=== PATIENT | female | born 1940 | race Caucasian/White ===

== ENCOUNTER → 2020-02-14 13:16 | Outpatient (CLI) | payer OTHER, SELFPAY ==
--- NOTE | ~2020-02-14 | MM_ITS ---
EXAMINATION: MM screening ajith BI w fabiana HISTORY: Screening mammogram TECHNIQUE: Craniocaudal and mediolateral oblique 3-D tomosynthesis images were obtained and synthetic 2-D images were generated. CAD analysis was submitted and interpreted. COMPARISON: , 06/18/2016, 05/23/2015 bilateral digital screening mammogram examinations BREAST PARENCHYMAL COMPOSITION: There are scattered areas of fibroglandular density. FINDINGS: 4.5 mm circumscribed opacity at mid depth in the inner mid to lower right breast. There ar e occasional punctate microcalcifications. There is no evidence of suspicious mass, calcification, or architectural distortion to suggest malignancy in either breast. There has been no suspicious interv al change. IMPRESSION: 1. No mammographic evidence of malignancy. 2. Recommend routine screening mammography in one year. BI-RADS Category 2: Benign finding(s). Reviewed, dictated and finalized at location A.
--- NOTE | ~2020-02-14 | DEXA_ITS ---
Bone Density Report Name: Kanika Méndez Age: 79 Sex: Female Ethnicity: White Date of : 1940 Indication: postmenopausal; screening for osteoporosis; height loss; Referring Provider: Kiya, Shona Greene Study: Bone densitometry was performed. Exam Date: February 14, 2020 Accession number: [id number] Bone Density: Region BMD T-score Z-score Classification AP Spine (L1-L4) 1.065 0.2 2.8 Normal Femoral Neck (Left) 0.648 -1.8 0.5 Osteopenia Total Hip (Left) 0.916 -0.2 1.8 Normal Femoral Neck (Right) 0.653 -1.8 0.5 Osteopenia Total Hip (Right) 0.918 -0.2 1.9 Normal Total Hip Mean 0.917 -0.2 1.9 Normal World Health Organization criteria for BMD impression classify patients as: Normal (T-score at or above -1.0), Osteopenia (T-score between -1.0 and -2.5), or Osteoporosis (T-score at or below -2.5). 10-year Fracture Risk(1): Major Osteoporotic Fracture 14% Hip Fracture 3.7% Reported Risk Factors: [place] (), Neck BMD=0.653, BMI=23.8 (1) FRAX(R) Version 3.08. Fracture probability calculated for an untreated patient. Fracture probability may be lower if the patient has received treatment. Previous Exams: Region Exam Age BMD T-score BMD Change BMD Change Date g/cm2 vs Baseline vs Previous AP Spine(L1-L4) 02/14/2020 79 1.065 0.2 0.024* 0.024* 11/15/2005 65 1.041 -0.1 Total Hip(Left) 02/14/2020 79 0.916 -0.2 -0.120* -0.062* 08/06/2016 76 0.979 0.3 -0.057* -0.057* 11/15/2005 65 1.036 0.8 Total Hip(Right) 02/14/2020 79 0.918 -0.2 -0.160* -0.073* 08/06/2016 76 0.991 0.4 -0.087* -0.087* 11/15/2005 65 1.078 1.1 *Denotes significance at 95% confidence level, LSC for AP Spine = 0.022 g/cm2, LSC for Total Hip = 0.027 g/cm2 Clinical Information Provided by Patient: Has used the following medications: Vitamin D, Calcium Patient maximum height was 63 Menopause Age: 50 Drinks caffeinated beverages Onset of menses at age 14 Number of children 2 Impression: The patient has low bone mass, based on the Left Femoral Neck T-score. The patient has an estimated ten-year risk of hip fracture of 3.7% and an estimated ten-year risk of major fracture of 14%, based on the WHO FRAX algorithm. The BMD for the Total Hip(Left) decreased, changing by -0.062 since the last DXA exam. The BMD for the Total Hip(Right) decreased, [facility]
== END ==
PROVIDERS: PCP Emergency Medicine; Visit Provider Nurse Practitioner Obstetrics & Gynecology
DX: Z12.31 Encounter for screening mammogram for malignant neoplasm of breast (principal); Z78.0 Asymptomatic menopausal state; M85.852 Other specified disorders of bone density and structure, left thigh; M85.851 Other specified disorders of bone density and structure, right thigh
CPT/HCPCS: 77063; 77067; 77080

== ENCOUNTER 2020-07-07 13:23 | Emergency (ER) | payer OTHER, SELFPAY ==
[2020-07-07 14:03] VITALS: BP 148/77; PULSE 88; RESP 18; TEMP 36.7; O2SAT 99
--- NOTE | 2020-07-07 14:16 | ED.URI ---
HPI - URI/Sore Throat General Chief Complaint: Upper Respiratory Infection Stated Complaint: Ear wax buildup Time Seen by Provider: 07/07/20 14:06 Source: patient and RN notes reviewed Mode of arrival: ambulatory Limitations: no limitations History of Present Illness HPI Narrative: Patient presents today complaining of a 3-week history of nasal congestion, a 2-week history of productive cough with green sputum and a 2-week history of left ear clogging without pain. Denies shortness of breath, fever, sore throat, rhinorrhea. No history of COPD or asthma. Reports she has been using earwax softening drops without result. She has also been taking Claritin with some relief. MD elicited complaint: cough and nasal congestion Related Data Home Medications Medication Instructions Recorded Confirmed trazodone 100 mg tablet 100 mg PO DAILY tablet 05/12/19 baclofen 10 mg tablet 10 mg PO TID tablet 03/01/20 diclofenac sodium 1 % topical gel 2 gm TOPICAL TID gm 03/01/20 docusate sodium 50 mg capsule See Rx Instructions PO DAILY 03/01/20 ferrous sulfate 325 mg (65 mg 325 mg PO BID 03/01/20 iron) tablet gabapentin 600 mg tablet 600 mg PO TID 03/01/20 multivitamin,ty-fhun-nzvqmdcn 1 tablet PO DAILY 03/01/20 Allergies Allergy/AdvReac Type Severity Reaction Status Date / Time clavulanic acid Allergy Intermediate Rash Unverified 12/15/18 19:18 amoxicillin Allergy Unknown Verified 10/02/17 15:28 Sulfa (Sulfonamide Allergy Unknown Verified 04/28/15 13:34 Antibiotics) Review of Systems Review of Systems: Narrative: CONSTITUTIONAL: Denies body aches, fever, chills, or sweats. EYES: Denies visual changes, redness, or discharge. ENT: Denies rhinorrhea, sore throat, or otalgia. + Nasal congestion, ear clogging CARDIOVASCULAR: Denies chest pain, palpitations, or edema. RESPIRATORY: Denies dyspnea. + Cough GASTROINTESTINAL: Denies abdominal pain, nausea, vomiting, or diarrhea. GENITOURINARY: Denies dysuria or hematuria. SKIN: Denies rash, itching, or wounds. MUSCULOSKELETAL: Denies back pain, joint pain, or myalgia. NEUROLOGIC: Denies headache, numbness, tingling, or weakness. PSYCH: Denies depression or anxiety. [facility] Past Medical History Medical History (Updated 07/07/20 @ 14:19 by Penny Perez, [facility], ) Depression Family History Family History Father Family history of cardiovascular disease, Onset Age: 82 Cerebrovascular accident, Onset Age: 82 Mother Family history of congestive heart failure, Onset Age: 78 Other Diabetes mellitus Family history of coronary artery disease Social History Social History Smoking status: Never smoker Alcohol intake: never Comments At time of signature, I have reviewed and agree with nursing past medical, surgical, social and family history unless otherwise noted. Please see nursing chart for further information. There is no relevant family history pertinent to the presenting complaint Exam Narrative: Exam Narrative: GENERAL: Well-appearing, well-nourished, and in no acute distress. HEAD: Normocephalic, atraumatic. EYES: EOMI. No redness or drainage. Conjunctivae normal. ENT: Mucous membranes pink and moist. Nares congested. Bilateral erythematous nasal turbinates. No rhinorrhea. TMs normal bilaterally with bilateral serous effusions. Throat normal. Uvula midline. NECK: Normal AROM. Supple. No lymphadenopathy. CHEST: No respiratory distress. Clear to auscultation. HEART: Regular rate and rhythm. No murmur appreciated. Normal peripheral pulses. EXTREMITIES: Normal range of motion. No edema. SKIN: Warm, dry, no rash. Capillary refill normal. Normal skin turgor. NEURO: No focal deficits. Alert and oriented x3. Gait steady. PSYCH: Normal affect. No signs of depression or anxiety. Course Vital Signs Vital sig
== END 2020-07-07 14:27 | disposition home or self-care (01) ==
PROVIDERS: Emergency Provider Nurse Practitioner; PCP Emergency Medicine
DX: J01.90 Acute sinusitis, unspecified (principal); F32.9 Major depressive disorder, single episode, unspecified
CPT/HCPCS: 99213; G0463

== ENCOUNTER → 2021-03-07 13:42 | Outpatient (CLI) | payer OTHER, SELFPAY ==
--- NOTE | ~2021-03-07 | MM_ITS ---
EXAMINATION: MM screening ajith BI w fabiana HISTORY: Screening mammogram TECHNIQUE: Craniocaudal and mediolateral oblique 3-D tomosynthesis images were obtained and synthetic 2-D images were generated. CAD analysis was submitted and interpreted. COMPARISON: 02/14/2020, 10/07/2018, 06/22/2016 bilateral digital screening mammogram examinations BREAST PARENCHYMAL COMPOSITION: There are scattered areas of fibroglandular density. FINDINGS: Stable circumscribed 4.5 mm opacity of right breast since 02/14/2020. There is no evidence o f suspicious mass, calcification, or architectural distortion to suggest malignancy in either breast. There has been no suspicious interval change. IMPRESSION: 1. No mammographic evidence of malignancy. 2. Recommend routine screening mammography in one year. BI-RADS Category 2: Benign finding(s). Reviewed, dictated and finalized at location A.
== END ==
PROVIDERS: PCP Emergency Medicine; Visit Provider Emergency Medicine
DX: Z12.31 Encounter for screening mammogram for malignant neoplasm of breast (principal)
CPT/HCPCS: 77063; 77067

== ENCOUNTER → 2022-05-20 13:50 | Outpatient (CLI) | payer OTHER, SELFPAY ==
--- NOTE | ~2022-05-20 | MM_ITS ---
EXAMINATION: MM screening ajith BI w fabiana HISTORY: Screening mammogram TECHNIQUE: Craniocaudal and mediolateral oblique 3-D tomosynthesis images were obtained and synthetic 2-D images were generated. CAD analysis was submitted and interpreted. COMPARISON: 03/07/2021, 02/14/2020, 10/07/2018, 04/27/2013 bilateral screening mammogram examinations BREAST PARENCHYMAL COMPOSITION: There are scattered areas of fibroglandular density. FINDINGS: Stable circumscribed 4 mm low-density opacity at mid depth in the inner mid to lower right breast since 04/27/2013 There is no evidence of suspicious mass, calcification, or architectural dist ortion to suggest malignancy in either breast. There has been no suspicious interval change. IMPRESSION: 1. No mammographic evidence of malignancy. 2. Recommend routine screening mammography in one year. BI-RADS Category 2: Benign finding(s). Reviewed, dictated and finalized at location A. [employer]
== END ==
PROVIDERS: PCP Emergency Medicine; Visit Provider Emergency Medicine
DX: Z12.31 Encounter for screening mammogram for malignant neoplasm of breast (principal)
CPT/HCPCS: 77063; 77067

== ENCOUNTER 2023-04-06 13:36 | Emergency (ER) | payer OTHER, SELFPAY ==
--- NOTE | ~2023-04-06 | XR_ITS ---
EXAM: XR hip LT min 2V DATE: 04/06/2023 14:29 HISTORY: fell on cement steps this AM/lateral hip pain . COMPARISON: None available. FINDINGS: Decreased mineralization. No fracture or dislocation. No lytic or blastic lesion. Degenera tive changes in the lumbar spine. Moderate degenerative change in the left SI joint. Mild left hip os teoarthritis and osteitis pubis. Pelvic enthesopathy. No erosion or periosteal change. Left inguinal surgical clips. Scattered vascular calcifications. IMPRESSION: No acute osseous finding in the left hip. Reviewed, dictated and finalized at location K.
[2023-04-06 13:48] VITALS: BP 115/64; PULSE 93; RESP 18; TEMP 36.6; O2SAT 97
--- NOTE | 2023-04-06 14:11 | ED.LOWEXIN ---
HPI - Extremity Injury (Lower) General Chief Complaint: Extremity Injury, Lower Stated Complaint: Lt Hip Paid Due To Fall Source: patient Mode of arrival: ambulatory Limitations: no limitations History of Present Illness HPI Narrative: 83-year-old female presented for evaluation after she fell on the steps at [employer] this morning while using the walker. States the walker slipped and she landed on the left hip. Other people were able to help her up. Currently denies any pain. Able to bear weight using walker per usual. Tolerates sitting position without pain. Denies numbness, tingling or weakness of the leg, denies back pain out of the ordinary (has spinal stim for arthritis) denies hitting her head or LOC. has not required anything for pain. Related Data Home Medications Medication Instructions Recorded Confirmed baclofen 10 mg tablet 10 mg PO TID 03/01/20 04/06/23 docusate sodium 50 mg capsule See Rx Instructions PO DAILY 03/01/20 04/06/23 (Stool Softener) ferrous sulfate 325 mg (65 mg 325 mg PO BID 03/01/20 04/06/23 iron) tablet (FeroSul) gabapentin 600 mg tablet 600 mg PO TID pain 03/01/20 04/06/23 multivitamin,bs-numx-rpwdzsxi 1 tablet PO DAILY 03/01/20 04/06/23 (Complete Multivitamin tablet) acetaminophen 300 mg-codeine 30 mg 1 tablet PO Q8H PRN Pain (Scale 12/03/22 04/06/23 tablet Score 7-10) calcium carb-ergocalciferol (vit 1 tablet PO DAILY 12/03/22 04/06/23 D2) 500 mg-125 unit tablet clobetasol 0.05 % topical ointment 1 applic topical DAILY 12/03/22 04/06/23 omega 5-uvu-edd-fish oil 1,000 mg 1 cap PO DAILY 12/03/22 04/06/23 (120 mg-180 mg) capsule (Fish Oil) prochlorperazine maleate 10 mg 10 mg PO Q6H PRN Nausea 12/03/22 04/06/23 tablet tizanidine 4 mg tablet 4 mg PO QHS PRN Spasms 12/03/22 04/06/23 Allergies Allergy/AdvReac Type Severity Reaction Status Date / Time amoxicillin AdvReac Mild Rash Verified 04/06/23 13:53 Cephalosporins AdvReac Mild Rash Verified 04/06/23 13:53 clavulanic acid AdvReac Mild Rash Verified 04/06/23 13:53 Sulfa (Sulfonamide AdvReac Mild Rash Verified 04/06/23 13:53 Antibiotics) Review of Systems Review of Systems: CONSTITUTIONAL: Denies body aches, fever, chills EYES: Denies visual changes ENT: Denies rhinorrhea, congestion CARDIOVASCULAR: Denies chest pain, palpitations, or edema. RESPIRATORY: Denies cough or dyspnea. GASTROINTESTINAL: Denies abdominal pain, nausea, vomiting, or diarrhea. SKIN: Denies rash, itching, or wounds. MUSCULOSKELETAL: Denies back pain, joint pain, or myalgia. NEUROLOGIC: Denies headache, numbness, tingling, or weakness. All systems reviewed & are unremarkable except as noted in HPI and below PMFSH Past Medical History Medical History Acute right-sided low back pain [place]head Body mass index [BMI] 23.0-23.9, adult (09/15/15) Chronic left-sided thoracic back pain Depression Gastroesophageal reflux disease without esophagitis Hiatal hernia Hyperglycemia Impacted cerumen of both ears Low grade mucinous neoplasm of appendix Mixed hyperlipidemia Osteopenia of necks of both femurs Other chronic pain Other iron deficiency anemias Other specified disorders of bone density and structure, left ankle and foot Respiratory tract congestion with cough Spinal cord stimulator status Upper back pain on left side URI, acute Vitamin D deficiency Wheezing Surgical History Surgical History Hx of appendectomy Family History Family History Father Family history of cardiovascular disease, Onset Age: 82 Cerebrovascular accident, Onset Age: 82 Mother Family history of congestive heart failure, Onset Age: 78 Other Diabetes mellitus Family history of coronary artery disease Social History Social History (Reviewed 04/06/23 @ 14:33 by Tiana Pal
== END 2023-04-06 14:50 | disposition home or self-care (01) ==
PROVIDERS: Emergency Provider Nurse Practitioner Family; PCP Emergency Medicine
DX: M25.552 Pain in left hip (principal); E78.2 Mixed hyperlipidemia; Z79.899 Other long term (current) drug therapy; W10.9XXA Fall (on) (from) unspecified stairs and steps, initial encounter; Y92.22 Religious institution as the place of occurrence of the external cause
CPT/HCPCS: 73502; 99213; G0463

== ENCOUNTER 2023-04-11 12:23 | Emergency (ER) | payer OTHER, SELFPAY ==
--- NOTE | ~2023-04-11 | XR_ITS ---
EXAMINATION: XR chest 2V DATE: 04/11/2023 12:57 INDICATION: Dyspnea. TECHNIQUE: Frontal and lateral views of the chest were obtained. COMPARISON: Chest 2 views 09/15/2015, CT abdomen and pelvis 09/10/2017 FINDINGS: Calcified pulmonary nodules and calcified hilar and mediastinal lymph nodes are consistent with old granulomatous disease. There is mild atelectasis at left lung base. No pleural effusion or p neumothorax. The heart size is normal. There is a large hiatal hernia. There is a right subclavian po rt with tip in proximal right atrium. Epidural electrodes are noted. IMPRESSION: 1. Mild atelectasis at left lung base. 2. Large hiatal hernia. Reviewed, dictated and finalized at location A.
[2023-04-11 12:36] VITALS: BP 123/67; PULSE 112; RESP 18; TEMP 36.6; O2SAT 94
--- NOTE | 2023-04-11 12:36 | ED.SOB ---
HPI - SOB/Dyspnea General Chief Complaint: Shortness of Breath/Dyspnea Stated Complaint: Trouble Breathing, Grasping for Breath Source: patient, family and RN notes reviewed History of Present Illness HPI Narrative: 83 yo F presents to urgent care with son at side. Pt states she has been short of breath x 1 month. Pt states it is constant with position and activity not contributing to it. Son states pt's lower legs have had swelling the last few months which is new. Denies any cough, fevers, chills, increased back pain, chest pain, vomiting, or diarrhea. Pt has a hx of melanoma. Is scheduled to see a neurologist next month regarding the new tremors she developed this past summer. Pt also fell recently and was seen here 5 days ago after injuring her hip. Pt denies this SOB has gotten worse from the fall. Related Data Home Medications Medication Instructions Recorded Confirmed baclofen 10 mg tablet 10 mg PO TID 03/01/20 04/11/23 docusate sodium 50 mg capsule See Rx Instructions PO DAILY 03/01/20 04/11/23 (Stool Softener) ferrous sulfate 325 mg (65 mg 325 mg PO BID 03/01/20 04/11/23 iron) tablet (FeroSul) gabapentin 600 mg tablet 600 mg PO TID pain 03/01/20 04/11/23 multivitamin,ci-orbe-zkvckwwr 1 tablet PO DAILY 03/01/20 04/11/23 (Complete Multivitamin tablet) acetaminophen 300 mg-codeine 30 mg 1 tablet PO Q8H PRN Pain (Scale 12/03/22 04/11/23 tablet Score 7-10) calcium carb-ergocalciferol (vit 1 tablet PO DAILY 12/03/22 04/11/23 D2) 500 mg-125 unit tablet clobetasol 0.05 % topical ointment 1 applic topical DAILY 12/03/22 04/11/23 omega 9-jcr-laf-fish oil 1,000 mg 1 cap PO DAILY 12/03/22 04/11/23 (120 mg-180 mg) capsule (Fish Oil) prochlorperazine maleate 10 mg 10 mg PO Q6H PRN Nausea 12/03/22 04/11/23 tablet tizanidine 4 mg tablet 4 mg PO QHS PRN Spasms 12/03/22 04/11/23 Allergies Allergy/AdvReac Type Severity Reaction Status Date / Time amoxicillin AdvReac Mild Rash Verified 04/11/23 12:43 Cephalosporins AdvReac Mild Rash Verified 04/11/23 12:43 clavulanic acid AdvReac Mild Rash Verified 04/11/23 12:43 Sulfa (Sulfonamide AdvReac Mild Rash Verified 04/11/23 12:43 Antibiotics) Review of Systems Review of Systems: CONSTITUTIONAL: Denies fever, chills, or sweats. EYES: Denies visual changes, redness, or discharge. ENT: Denies otalgia and sore throat CARDIOVASCULAR: Denies chest pain, palpitations. + edema RESPIRATORY: dyspnea. GASTROINTESTINAL: Denies abdominal pain, nausea, vomiting, or diarrhea. GENITOURINARY: Denies dysuria or hematuria. SKIN: Denies rash or itching. MUSCULOSKELETAL: Denies back pain, joint pain, or myalgia. NEUROLOGIC: Denies headache, numbness, or weakness. Pertinent positives per HPI. [facility] Past Medical History Medical History Acute right-sided low back pain [place]head Body mass index [BMI] 23.0-23.9, adult (09/15/15) Chronic left-sided thoracic back pain Depression Gastroesophageal reflux disease without esophagitis Hiatal hernia Hyperglycemia Impacted cerumen of both ears Low grade mucinous neoplasm of appendix Mixed hyperlipidemia Osteopenia of necks of both femurs Other chronic pain Other iron deficiency anemias Other specified disorders of bone density and structure, left ankle and foot Respiratory tract congestion with cough Spinal cord stimulator status Upper back pain on left side URI, acute Vitamin D deficiency Wheezing Surgical History Surgical History Hx of appendectomy Family History Family History Father Family history of cardiovascular disease, Onset Age: 82 Cerebrovascular accident, Onset Age: 82 Mother Family history of congestive heart failure, Onset Age: 78 Other Diabetes mellitus Family history of coronary artery disease Social Histo
--- NOTE | 2023-04-11 13:13 | ECG_ITS ---
Measurements Intervals [place] Rate: 100 P: 20 MS: 128 QRS: -27 QRSD: 65 T: 6 QT: 302 QTc: 390 Interpretive Statements SINUS TACHYCARDIA LOW QRS VOLTAGE IN PRECORDIAL LEADS [QRS DEFLECTION < 1.0 mV IN CHEST LEADS] POSSIBLE ANTERIOR MYOCARDIAL INFARCTION [30 ms Q WAVE IN V3/V4, OR R < 0.2 mV IN V4], PROBABLY OLD ARTIFACT LIMITS INTERPRETATION ABNORMAL ECG NO PREVIOUS ECG AVAILABLE FOR COMPARISON Electronically Signed On 04-11-2023 14:09:12 CDT by Parker Crowe M.D.
== END 2023-04-11 13:28 | disposition home or self-care (01) ==
PROVIDERS: Emergency Provider Nurse Practitioner Family; PCP Emergency Medicine
DX: R06.00 Dyspnea, unspecified (principal); R94.31 Abnormal electrocardiogram [ECG] [EKG]; K21.9 Gastro-esophageal reflux disease without esophagitis; E78.2 Mixed hyperlipidemia; M85.862 Other specified disorders of bone density and structure, left lower leg; M85.861 Other specified disorders of bone density and structure, right lower leg; D50.9 Iron deficiency anemia, unspecified; E55.9 Vitamin D deficiency, unspecified; Z96.82 Presence of neurostimulator
CPT/HCPCS: 71046; 93005; 99213; G0463

== ENCOUNTER 2023-04-13 07:03 | Inpatient (IN) | payer OTHER, SELFPAY ==
[2023-04-13] VITALS (15 sets, daily range): BP systolic 107–125; BP diastolic 56–69; PULSE 91–122; RESP 14–21; TEMP 36.6–37.6; O2SAT 92–100; BMI 22.8
--- NOTE | ~2023-04-13 | CT_ITS ---
EXAMINATION: CT brain wo con DATE: 04/15/2023 14:17 INDICATION: Acute mental status change. TECHNIQUE: Computed tomography (CT) of the head was performed without intravenous contrast. The mA wa s adjusted according to patient size. Iterative reconstruction technique was employed. The dose-lengt h product was 605.33 mGy-cm. COMPARISON: Head CT 04/13/2023 FINDINGS: There is no intracranial hemorrhage, acute infarction, or abnormal intracranial mass lesion . The ventricles are normal in size. There is mild mucosal thickening in the paranasal sinuses. The m astoid air cells are normal. There are likely changes of ocular lens replacement surgeries. IMPRESSION: 1. Normal brain. Reviewed, dictated and finalized at location E. IMPRESSION: 1. Normal brain.
--- NOTE | ~2023-04-13 | US_ITS ---
EXAMINATION: US venous doppler [facility] DATE: 04/13/2023 18:58 INDICATION: Bilateral lower limb swelling TECHNIQUE: Grayscale ultrasound images without and with compression and Doppler ultrasound images of the bilateral lower extremity veins were obtained. COMPARISON: None. FINDINGS: The visualized portions of right common femoral vein, profunda (deep) femoral vein, femoral vein, pop liteal vein, posterior tibial veins, peroneal veins, anterior tibial vein and greater saphenous vein outflow are patent. The visualized portions of left common femoral vein, profunda femoral vein, femoral vein, popliteal v ein, posterior tibial veins, peroneal veins, anterior tibial vein and greater saphenous vein outflow are patent. 6.3 x 2.3 x 4.8 cm lesion with lobular margins and with both anechoic and hypoechoic comp onents at the left groin. There is no surrounding hyperemia or internal vascular flow on color Dopple r. IMPRESSION: 1. No deep venous thrombosis in either lower limb. 2. 6.3 x 2.3 x 4.8 cm complex cystic lesion at the left groin. Given the history of recent fall with left hip pain this could represent a posttraumatic hematoma over the imaging features are nonspecific and differential would include neoplasm. Correlate clinically and could consider further evaluation with contrast-enhanced MRI or CT as clinically indicated. Reviewed, dictated and finalized at location A. IMPRESSION: 1. No deep venous thrombosis in either lower limb. 2. 6.3 x 2.3 x 4.8 cm complex cystic lesion at the left groin. Given the histor y of recent fall with left hip pain this could represent a posttraumatic hemato ma over the imaging features are nonspecific and differential would include santos plasm. Correlate clinically and could consider further evaluation with contrast -enhanced MRI or CT as clinically indicated.
--- NOTE | ~2023-04-13 | CT_ITS ---
EXAMINATION: CT brain wo con DATE: 04/13/2023 09:19 INDICATION: Weakness. TECHNIQUE: Computed tomography (CT) of the head was performed without intravenous contrast. The mA wa s adjusted according to patient size. Iterative reconstruction technique was employed. The dose-lengt h product was 529.67 mGy-cm. COMPARISON: None FINDINGS: There is no intracranial hemorrhage, acute infarction, or abnormal intracranial mass lesion . The ventricles are normal in size. There is mucosal thickening in the paranasal sinuses. The mastoi d air cells are normal. IMPRESSION: 1. Normal brain. Reviewed, dictated and finalized at location A. IMPRESSION: 1. Normal brain.
--- NOTE | ~2023-04-13 | XR_ITS ---
EXAMINATION: XR chest 1V portable DATE: 04/13/2023 08:07 INDICATION: Shortness of breath. TECHNIQUE: A single frontal view of the chest was obtained. COMPARISON: Chest 2 views 04/11/2023, CT abdomen and pelvis 09/10/2017 FINDINGS: There is mild atelectasis in left lower lung zone. Calcified right lung nodules are consist ent with old granulomatous disease. No pleural effusion or pneumothorax. The heart size is normal. Th ere is a large hiatal hernia. There is a right subclavian port with tip in proximal right atrium. Epi dural electrodes are noted. IMPRESSION: 1. Mild atelectasis in left lower lung zone. 2. Large hiatal hernia. Reviewed, dictated and finalized at location E.
--- NOTE | ~2023-04-13 | CT_ITS ---
EXAMINATION: CTA chest PE protocol DATE: 04/13/2023 09:19 INDICATION: Shortness of breath. TECHNIQUE: Computed tomography angiography (CTA) of the chest was performed with 100 mL Omnipaque-350 intravenous contrast timed to evaluate the pulmonary arteries. Coronal maximum intensity projection 3D-reconstructions were created by the technologist. Automated exposure control and iterative reconst ruction technique were employed. The dose-length product was 284.89 mGy-cm. COMPARISON: CT abdomen and pelvis 09/10/2017 FINDINGS: The lungs demonstrate mild atelectasis. A calcified right lung nodule and calcified right h ilar lymph nodes are consistent with old granulomatous disease. No pleural effusion. There is a large sliding hiatal hernia. The heart size is normal. No pericardial effusion. There are coronary artery calcifications. There is no pulmonary embolus. There is a right subclavian port with tip in right atr ium. Calcifications in the liver and spleen are consistent with old granulomatous disease. An epidura l electrode is noted. There is an electrode in the thecal sac. There is severe thoracic spondylosis. IMPRESSION: 1. No pulmonary embolus. 2. Large sliding hiatal hernia. 3. Two spinal electrodes, one of which is in unexpected position in the thecal sac and one of which i s in the epidural space. Reviewed, dictated and finalized at location A. IMPRESSION: 1. No pulmonary embolus. 2. Large sliding hiatal hernia. 3. Two spinal electrodes, one of which is in unexpected position in the thecal sac and one of which is in the epidural space.
--- NOTE | 2023-04-13 07:18 | ECG_ITS ---
Measurements Intervals [place] Rate: 108 P: 25 FL: 130 QRS: -22 QRSD: 89 T: 6 QT: 296 QTc: 398 Interpretive Statements SINUS TACHYCARDIA LOW QRS VOLTAGE IN PRECORDIAL LEADS SEPTAL MYOCARDIAL INFARCTION , PROBABLY OLD INFERIOR MYOCARDIAL INFARCTION , PROBABLY OLD COMPARED TO ECG 04/11/2023 13:24:27 NO SIGNIFICANT CHANGES Electronically Signed On 04-13-2023 13:02:08 CDT by Kemar Guthrie M.D.
--- NOTE | 2023-04-13 07:42 | ED.WEAKNESS ---
HPI - Weakness General Chief complaint: Weakness Stated complaint: weakness Time Seen by Provider: 04/13/23 07:10 Source: patient, family (son), RN notes reviewed and old records reviewed Mode of arrival: wheelchair Limitations: dementia History of Present Illness HPI Narrative: This is an 83 year old female with history of multiple medical problems including metastatic melanoma who presents for evaluation of low oxygen, leg swelling and weakness. Patient's son is at bedside to help with history. He states patient has had bilateral ankle swelling for a couple months. He also states patient has had shuffling gate and tremors since December. She was taken off her Keytruda treatment for melanoma and placed on prednisone to treat these tremors. She had MRI of brain that was negative for metastasis. She was taken to [facility] 2 days for shortness of breath and she had xray performed and EKG. He brought patient to ER this morning because he states she seems confused and he thought she had a fever. He wants to make sure patient does not have UTI, pneumonia, CHF or PE. Patient reports reports runny nose. She states this morning she was having trouble walking. She denies chest pain, nausea, vomiting, abdominal pain. Related Data Home Medications Medication Instructions Recorded Confirmed baclofen 10 mg tablet 10 mg PO TID 03/01/20 04/11/23 docusate sodium 50 mg capsule See Rx Instructions PO DAILY 03/01/20 04/11/23 (Stool Softener) ferrous sulfate 325 mg (65 mg 325 mg PO BID 03/01/20 04/11/23 iron) tablet (FeroSul) gabapentin 600 mg tablet 600 mg PO TID pain 03/01/20 04/11/23 multivitamin,ca-vyya-coyktzrw 1 tablet PO DAILY 03/01/20 04/11/23 (Complete Multivitamin tablet) acetaminophen 300 mg-codeine 30 mg 1 tablet PO Q8H PRN Pain (Scale 12/03/22 04/11/23 tablet Score 7-10) calcium carb-ergocalciferol (vit 1 tablet PO DAILY 12/03/22 04/11/23 D2) 500 mg-125 unit tablet clobetasol 0.05 % topical ointment 1 applic topical DAILY 12/03/22 04/11/23 omega 1-jxl-idw-fish oil 1,000 mg 1 cap PO DAILY 12/03/22 04/11/23 (120 mg-180 mg) capsule (Fish Oil) prochlorperazine maleate 10 mg 10 mg PO Q6H PRN Nausea 12/03/22 04/11/23 tablet tizanidine 4 mg tablet 4 mg PO QHS PRN Spasms 12/03/22 04/11/23 Allergies Allergy/AdvReac Type Severity Reaction Status Date / Time amoxicillin AdvReac Mild Rash Verified 04/11/23 12:43 Cephalosporins AdvReac Mild Rash Verified 04/11/23 12:43 clavulanic acid AdvReac Mild Rash Verified 04/11/23 12:43 Sulfa (Sulfonamide AdvReac Mild Rash Verified 04/11/23 12:43 Antibiotics) Review of Systems Constitutional: Constitutional: Reports fever(s) and Reports weakness ENT: Reports nasal congestion Cardiovascular: Cardiovascular: Denies syncope, Denies rapid heart rate, Denies irregular heart rhythm, Reports leg edema and Reports dyspnea Respiratory: Respiratory: Denies chest congestion, Denies hemoptysis, Denies excessive phlegm production and Reports dyspnea Gastrointestinal: Gastrointestinal: Denies abdominal pain, Denies hematochezia, Denies diarrhea and Denies vomiting Genitourinary: Genitourinary: Denies hematuria and Denies dysuria Musculoskeletal: Musculoskeletal: Denies joint swelling, Denies loss of height and Denies muscle weakness Neurologic: Denies syncope, Denies focal weakness and Denies weakness Comments: tremors [facility] Past Medical History Medical History (Updated 04/13/23 @ 10:12 by Qi Nolan MD) Acute right-sided low back pain [place] Body mass index [BMI] 23.0-23.9, adult (09/15/15) Chronic left-sided thoracic back pain Coarse tremors Depression Gastroesophageal reflux disease without esophagitis Hiatal hernia Hyperglycemia Impacted cerumen of both ears Low grade mucinous neoplasm of appendix Metastatic melanoma Mixed hyperlipidemia Osteopenia of necks of both femurs Other chronic pain Other iron deficiency anemias Other specified disorde
[2023-04-13 07:49] LABS: Alveolar/Arterial O2 Gradient 48.1 mmHg; Base Excess ABG 5.7 mEq/l (+/-2.0); Fractional Inspired Oxygen 21 %; HCO3 ABG 29.9 mEq/l (22.0-26.0); Methemoglobin ABG 0.2 %THb (0-1.5); Oxygen Content ABG 16.4 %vol (16.0-22.0); Oxygen Saturation ABG 88.8 % (95.0-100.0); PCO2 ABG 41.6 mmHg (35.0-45.0); PO2 ABG 51.8 mmHg (80.0-100.0); PO2 FiO2 Ratio Arterial Blood 2.47 %; Reduced Hemoglobin 12.4 %THb (0-5.0); Total Hemoglobin 13.5 g/dL (12.0-18.0); pH ABG 7.474 (7.350-7.450)
[2023-04-13 07:52] LABS: Basophils Percent Auto 0.3 % (0.2-1.2); Eosinophils Percent Auto 0.3 % (0-4.4); Hematocrit 40.9 % (37.0-47.0); Hemoglobin 13.3 g/dL (12.0-15.0); Immature Granulocyte Absolute 0.13 K/mm3 (0.00-0.031); Immature Granulocyte Percent A 1.3 % (0-0.5); Lymphocytes Absolute Auto 1.02 K/mm3 (0.9-3.2); Lymphocytes Percent Auto 10.5 % (18.3-44.2); Mean Corpuscular HGB Conc 32.5 g/dl (32-36); Mean Corpuscular Hemoglobin 32.1 pg (26-34); Mean Corpuscular Volume 98.8 fl (80-100); Mean Platelet Volume 8.7 fl (7.4-10.4); Monocytes Absolute Auto 0.6 K/mm3 (0.1-0.6); Monocytes Percent Auto 5.7 % (2.6-8.5); Neutrophils Absolute Auto 7.9 K/mm3 (1.3-6.7); Neutrophils Percent Auto 81.9 % (45.5-73.1); Platelet Count Result 242 k/mm3 (150-375); Red Blood Count 4.14 M/mm3 (4.2-5.4); White Blood Count 9.7 K/mm3 (4.5-10.0)
[2023-04-13 07:53] LABS: Device ROOM AIR; Modified Allen's Test Pass; Oxyhemoglobin 86.4 % THb (90.0-100.0); Site Drawn LEFT RADIAL
[2023-04-13 07:57] LABS: Appearance Urine Cloudy (Clear); Bacteria Urine None Seen /hpf; Bilirubin Urine Negative (Negative); Blood Urine Negative (Negative); Color Urine Yellow (Yellow); Glucose Urine UA Negative (Negative); Ketones Urine Negative (Negative); Leukocyte Esterase Ur Negative LEU/UL (Negative); Nitrate Urine Negative (Negative); Non Pathogenic Casts 0-2; Protein Urine Negative (Negative); RBC Urine 0-2 /hpf (0-2); Specific Grav Ur 1.018 (1.001-1.035); Squamous Epithelial Cell Urine None seen /hpf (Few); Urobilinogen Urine 0.2 mg/dL (<2.0); WBC Urine 0-5 /hpf; pH Urine 7.5 (5.0-9.0)
[2023-04-13 08:01] LABS: Alanine Aminotransferase 34 U/L (6-35); Albumin Level 3.7 g/dL (3.5-5.1); Alkaline Phosphatase 56 U/L (38-126); Anion Gap 4 mmol/L (8-16); Aspartate Amino Transferase 32 U/L (14-36); Bilirubin,Total 0.6 mg/dL (0.2-1.3); Blood Urea Nitrogen 29 mg/dL (7-17); Calcium 9.6 mg/dL (8.4-10.2); Carbon Dioxide 35 mmol/L (22-30); Chloride 99 mmol/L (98-107); Estimated CRCL calculation 38 ml/min; Estimated Glomerular Filt Rate > 60; Glucose 99 mg/dL (65-110); Magnesium 2.3 mg/dL (1.6-2.3); Potassium 4.4 mmol/L (3.4-5.0); Sodium 138 mmol/L (137-145)
[2023-04-13 08:10] LABS: NT Pro B Type Natriuretic Pept 163 pg/mL (19.9-100); Partial Thromboplastin Time 24.1 SECONDS (22.3-36.8)
[2023-04-13 08:11] LABS: Add Urine Microscopic? YES; Prothrombin Time 13.4 Seconds (11.1-14.7)
[2023-04-13 08:13] LABS: Troponin I < 0.012 ng/mL (0.000-0.034)
[2023-04-13 08:26] LABS: Influenza A QL RT-PCR Negative (Negative); Influenza B QL RT-PCR Negative (Negative); SARS-CoV-2 RNA PCR Negative (Negative)
[2023-04-13 08:34] LABS: Lactic Acid Reflex 1.3 mmol/L (0.7-2.0)
[2023-04-13 08:47] LABS: D Dimer 1.55 ug/mL (<0.48)
[2023-04-13] MEDS: SODIUM CHLORIDE 0.9% IV 1,000 ML 75 ML IV CONT (10:45)
--- NOTE | 2023-04-13 11:14 | ADMGEN ---
This patient, Kanika Méndez, was admitted to Medical Room 252-. Patient/family oriented to hospital policies and general routines including ID bracelet, bed and alarms, visiting hours, pain management, procedures, bathroom and other care routines, personal items, smoking policy, room service/diet, and visiting hours. Information on how to activate the Rapid Response Team has been discussed. Patient/Family are encouraged to report perceived risks to care and to ask questions if they do not understand what they are told or what they should do.
--- NOTE | 2023-04-13 13:14 | PM.IMHP ---
H&P: HPI History of Present Illness Date/Time: 04/13/23 13:15 Chief Complaint: Weakness, swelling, and shortenss of breath. Narrative: This is a very pleasant 83-year-old female with metastatic malignant melanoma, hyperlipidemia, and chronic pain who presented to the emergency department via private vehicle for evaluation of weakness, swelling, and shortness of breath. The patient provides the following history. Her son provides additional information with the patients permission. She is a patient of Dr. Goncalves and was started on Keytruda for her malignant melanoma however he documented on 02/07/2023 that she seemed to have progression in neurologic changes including shuffling gait, decrease interaction, increasing weakness, and tremors which may be related to the Keytruda itself. It was discontinued and she was started on prednisone 20 mg daily on 03/07/2023 with some improvement in her tremors. She had a brain MRI which did not show any acute findings or findings of metastatic disease. Unfortunately she continues to have progressive weakness and today she could hardly get herself up due to the weakness and she was brought in for evaluation. She did not have a fall today however she did fall last week on the [place], landing on her left hip. She was seen at [facility] where a hip x-ray was negative for acute findings. She was discharged home and was told to follow-up with her primary doctor in a week. She still has some issues with pain though she does not think the hip pain is what caused her to have difficulties getting up today. Overall she just feels very weak and worn out. She denies fever, chills, sweats, headache, sinus congestion, sore throat, cough, nausea, vomiting, diarrhea, and dysuria. In the ED: She was afebrile on arrival with stable vital signs. SpO2 reportedly dropped into the 80s on room air and she is currently on 3 L nasal cannula with SpO2 in the mid 90s. CMP and CBC were pretty unremarkable. D-dimer was elevated at 1.55. Troponin was normal. ProBNP was 163. She tested negative for influenza and COVID. Brain CT showed no acute findings. Chest x-ray showed a large hiatal hernia and mild atelectasis in the left lower lung zone. CT of the chest showed no evidence of pulmonary embolus. Review of Systems Review of Systems: Twelve systems were reviewed. She has an upcoming appointment with a neurologist at [place] in the next month or so for evaluation of ongoing tremors. She has symptoms of parkinsonism which is felt to be related to Keytruda as per HPI. She has to crush her medications. She denies dysphagia with food and liquids however reports an episode last month where she had a coughing fit while out to dinner and she thinks she may have aspirated a small amount of food at that time. She denies focal weakness, paresthesias, facial droop, difficulty speaking and swallowing. No chest pain or pleuritic pain. No significant orthopnea or lower extremity edema. Except as documented, all other systems were reviewed and are negative. [facility] Past Medical History Medical History (Updated 04/14/23 @ 00:10 by Tori Neal PA-C) Chronic pain syndrome Depression Gastroesophageal reflux disease Hiatal hernia Hypertension Low grade mucinous neoplasm of appendix Metastatic melanoma (12/2021) Arising in left lower extremity status post excision with sentinel node biopsy on adjuvant Keytruda. Mixed hyperlipidemia Osteopenia of necks of both femurs Vitamin D deficiency Surgical History Surgical History (Updated 04/13/23 @ 13:24 by Tori Neal PA-C) History of appendectomy Status post insertion of spinal cord stimulator Family History Family History Father Family history of cardiovascular disease, Onset Age: 82 Cerebrovascular accident, Onset Age: 82 Mother Family history of congestive heart failure, Onset Age: 78 Other Diabetes vielkai
[2023-04-13] MEDS: SIMVASTATIN 20 MG TABLET BY MOUTH (17:08)
[2023-04-13] MEDS: GABAPENTIN 300 MG CAPSULE 600 MG PO (17:08)
[2023-04-13] MEDS: FERROUS SULFATE 325 MG TABLET DR BY MOUTH (17:08)
[2023-04-13] MEDS: ACETAMINOPHEN 325 MG TABLET 650 MG PO (20:34)
[2023-04-13] MEDS: ACETAMINOPHEN/CODEINE (*CRX) 300/30 MG TABLET 1 TAB PO (22:58)
[2023-04-13] MEDS: traZODone HCL 50 MG TABLET 100 MG PO (22:59)
[2023-04-14] VITALS (7 sets, daily range): BP systolic 121–148; BP diastolic 58–67; PULSE 91–99; RESP 14–18; TEMP 36.4–37.3; O2SAT 94–97
[2023-04-14] MEDS: SODIUM CHLORIDE 0.9% IV 1,000 ML 75 ML IV CONT (01:32)
[2023-04-14 05:25] LABS: Basophils Percent Auto 0.4 % (0.2-1.2); Eosinophils Absolute Auto 0.1 K/mm3 (0-0.3); Eosinophils Percent Auto 0.6 % (0-4.4); Hematocrit 38.8 % (37.0-47.0); Hemoglobin 12.4 g/dL (12.0-15.0); Immature Granulocyte Absolute 0.13 K/mm3 (0.00-0.031); Immature Granulocyte Percent A 1.4 % (0-0.5); Lymphocytes Absolute Auto 1.14 K/mm3 (0.9-3.2); Lymphocytes Percent Auto 12.2 % (18.3-44.2); Mean Corpuscular Hemoglobin 32.2 pg (26-34); Mean Corpuscular Volume 100.8 fl (80-100); Mean Platelet Volume 8.6 fl (7.4-10.4); Monocytes Absolute Auto 0.6 K/mm3 (0.1-0.6); Monocytes Percent Auto 6.6 % (2.6-8.5); Neutrophils Absolute Auto 7.4 K/mm3 (1.3-6.7); Neutrophils Percent Auto 78.8 % (45.5-73.1); Platelet Count Result 237 k/mm3 (150-375); Red Blood Count 3.85 M/mm3 (4.2-5.4); Red Cell Distribution Width 14.6 % (11.5-14.5); White Blood Count 9.4 K/mm3 (4.5-10.0)
[2023-04-14 05:43] LABS: Alanine Aminotransferase 32 U/L (6-35); Albumin Level 3.4 g/dL (3.5-5.1); Alkaline Phosphatase 57 U/L (38-126); Anion Gap 3 mmol/L (8-16); Aspartate Amino Transferase 40 U/L (14-36); Bilirubin,Total 0.5 mg/dL (0.2-1.3); Blood Urea Nitrogen 19 mg/dL (7-17); Calcium 8.8 mg/dL (8.4-10.2); Carbon Dioxide 33 mmol/L (22-30); Chloride 102 mmol/L (98-107); Estimated CRCL calculation 43 ml/min; Estimated Glomerular Filt Rate > 60; Glucose 98 mg/dL (65-110); Potassium 3.5 mmol/L (3.4-5.0); Sodium 138 mmol/L (137-145)
[2023-04-14] MEDS: ACETAMINOPHEN/CODEINE (*CRX) 300/30 MG TABLET 1 TAB PO ×3 (06:49→23:46)
[2023-04-14] MEDS: THERAPEUTIC MULTIVITAMINS/MINERALS TAB (*BKC) 1 TABLET PO (08:21)
[2023-04-14] MEDS: PANTOPRAZOLE 40 MG TABLET PO (08:21)
[2023-04-14] MEDS: predniSONE 20 MG TABLET PO (08:21)
[2023-04-14] MEDS: PARoxetine 20 MG TABLET BY MOUTH (08:21)
[2023-04-14] MEDS: OMEGA 3 POLYUNSAT FATTY ACIDS 1 GM CAP PO (08:21)
[2023-04-14] MEDS: DOCUSATE SODIUM 100 MG CAPSULE PO ×2 (08:21→20:13)
[2023-04-14] MEDS: GABAPENTIN 300 MG CAPSULE 600 MG PO ×3 (08:21→17:52)
[2023-04-14] MEDS: ENOXAPARIN 40 MG/0.4 ML SYRINGE SUB-Q (08:21)
[2023-04-14] MEDS: FERROUS SULFATE 325 MG TABLET DR BY MOUTH ×2 (08:21→17:55)
--- NOTE | 2023-04-14 09:31 | PCSTNOTE ---
Please refer to the Bedside Swallow Evaluation in the EMR. Please note, silent aspiration cannot be ruled out at bedside.
[2023-04-14] MEDS: ACETAMINOPHEN 325 MG TABLET 650 MG PO (12:17)
[2023-04-14] MEDS: DICLOFENAC SOD 75 MG TABLET.EC BY MOUTH (12:18)
--- NOTE | 2023-04-14 14:27 | PM.IMPN ---
Progress Note: A&P Assessment and Plan (1) Hypoxia: Code(s): R09.02 - Hypoxemia Status: Acute Assessment and Plan: SpO2 reportedly dropped into the 80s on room air and she is currently on 3 L nasal cannula with SpO2 in the mid 90s. CTA of the chest was negative for pulmonary embolism and there was no evidence of pneumonitis, pneumonia, or pulmonary edema. Echocardiogram ordered. No sign of infection on labs or imaging. Patient able to be weaned down to 2 L today. (2) Generalized weakness: Code(s): R53.1 - Weakness Status: Acute Assessment and Plan: She had a fall last week in which she landed on her left hip and she has some swelling in that left groin which may be playing a factor here. Venous Doppler ultrasound negative for DVT PT and OT ordered No sign of infection on labs or imaging Patient having workup for Parkinson's disease neurology appointment next Friday (3) Metastatic melanoma: Onset Date: 12/2021 Code(s): C43.9 - Malignant melanoma of skin, unspecified Status: Acute Assessment and Plan: Finished chemotherapy treatments in February. (4) Swelling of lower extremity: Code(s): M79.89 - Other specified soft tissue disorders Status: Acute Assessment and Plan: Lower extremity Dopplers negative for DVT. Echocardiogram ordered. (5) Chronic pain syndrome: Code(s): G89.4 - Chronic pain syndrome Status: Acute Assessment and Plan: Continue home medication. Subjective Date/time seen: 04/14/23 14:27 Interval history: Patient stated that she has been experiencing shortness of breath with sitting and standing as well as having difficulty breathing lying down flat in bed. States that it is easier for her to breathe when she is in a reclined position. She has had mild swelling in her bilateral feet. She denies a cough and wheezing. She denies any history of heart disease and lung disease. Currently requiring 2 L of oxygen. CTA did not reveal any interstitial lung disease or infection. Echocardiogram ordered. Exam Narrative: GENERAL: Comfortable, no acute distress HENMT: moist mucous membranes EYES: EOM intact b/l NECK: no lymphadenopathy RESPIRATORY: Mild bibasilar crackles CARDIO: RRR GI: soft, nontender, bowel sounds present SKIN: no rashes EXTREMITIES: no edema, redness or tenderness Objective Data Vital Signs Vital Signs: Vital Signs - 24 hr 04/13/23 21:02 10/15/23 20:00 04/14/23 00:03 Temperature 99.6 F 99.1 F Pulse Rate 102 H Respiratory Rate 17 Blood Pressure 125/56 L Pulse Oximetry 96 96 Oxygen Delivery Nasal Cannula Oxygen Flow Rate 3 04/14/23 05:33 04/14/23 08:00 04/14/23 11:37 Temperature 97.9 F Pulse Rate 99 Respiratory Rate 17 Blood Pressure 129/58 L Pulse Oximetry 94 94 Oxygen Delivery Nasal Cannula Nasal Cannula Oxygen Flow Rate 2 2 Intake/Output Intake/Output: Intake & Output 04/11/23 04/12/23 04/13/23 04/14/23 23:59 23:59 23:59 23:59 Intake Total 480 1220 Output Total 1150 1400 Balance -670 -180 Meds/Results Medications: Active Medications Generic Name Dose Route Start Last Admin Trade Name Freq PRN Reason Stop Dose Admin Acetaminophen 650 mg 04/13/23 10:00 04/14/23 12:17 Acetaminophen 325 Mg Tablet PO 650 mg Q4H PRN Administration Mild Pain (1-3) or Fever Acetaminophen/Codeine Phosphate 1 tab 04/13/23 22:45 04/14/23 06:49 Acetaminophen/Codeine (*Crx) 300/30 Mg Tablet PO 1 tab Q8H PRN Administration Pain (Scale Score 7-10) Bisacodyl 5 mg 04/14/23 14:17 Bisacodyl 5 Mg Tablet Ec PO QAM PRN Constipation Calcium Carbonate 500 mg 04/14/23 09:00 04/14/23 08:21 Calcium/Vitamin D 500 Mg Tablet PO 500 mg QAM VENKATESH Administration Clobetasol Propionate 1 applic 04/14/23 09:00 Clobetasol Propionate 0.05% Oint 30
[2023-04-14] MEDS: SIMVASTATIN 20 MG TABLET BY MOUTH (17:55)
[2023-04-14] MEDS: traZODone HCL 50 MG TABLET 100 MG PO (20:12)
[2023-04-14] MEDS: BACLOFEN 10 MG TABLET PO (23:53)
--- NOTE | 2023-04-15 | ECHO_ITS ---
Patient Info Name: Kanika Méndez Age: 83 years : 1940 Gender: Female Ht: 63 in Wt: 128 lbs BSA: 1.61 m2 HR: 106 bpm BP: 135 / 67 mmHg Technical Quality: Good Exam Date: 04/15/2023 8:39 AM Exam Location: [facility] Patient Status: Inpatient Admit Date: 04/14/2023 Staff Ordering Physician: Tori Neal PA-C Electric Spot Welder: Meli Barksdale RDCS Attending Provider: Wade Lee MD Referring Physician: Ángel MCCARTY; Exam Type: CA echo doppler color flow Study Info Indications R06.02 - Shortness of breath Complete two-dimensional, color flow and Doppler transthoracic echocardiogram is performed. Summary 1. Complete two-dimensional, color flow and Doppler transthoracic echocardiogram is performed. 2. Left ventricular chamber dimension is normal. 3. Left ventricular systolic function is hyperdynamic, estimated at >70%. 4. The left ventricular diastolic function is grade I diastolic dysfunction. 5. E/e' 11 is mildly elevated. 6. No pulmonary hypertension, estimated pulmonary arterial systolic pressure is 34 mmHg. Left Ventricle E/e' 11 is mildly elevated. Left ventricular chamber dimension is normal. Left ventricular systolic function is hyperdynamic, estimated at >70%. The left ventricular diastolic function is grade I diastolic dysfunction. Right Ventricle Right ventricular systolic function is normal and with normal TAPSE 2.5 cm. Right ventricular chamber dimension is normal. Left Atria Left atrial chamber dimension is normal. Right Atria Right atrial chamber dimension is normal. Aortic Valve The aortic valve is trileaflet. There is no aortic valve stenosis. There is no aortic valve regurgitation. Pulmonic Valve There is no pulmonic regurgitation. Mitral Valve There is no mitral valve stenosis. There is no mitral valve regurgitation. Tricuspid Valve There is no tricuspid valve regurgitation. No pulmonary hypertension, estimated pulmonary arterial systolic pressure is 34 mmHg. Pericardium/Pleural There is no pericardial effusion. Inferior Vena Cava Normal inferior vena cava with >50% collapse upon inspiration consistent with normal right atrial pressure, 5 mmHg. Aorta The aortic root size at the sinus of Valsalva is normal. Left Ventricular Outflow Tract Name Value Normal LVOT 2D LVOT Diameter 2.0 cm LVOT Doppler LVOT Peak Gradient 10 mmHg LVOT Mean Gradient 5 mmHg LVOT VTI 23 cm LVOT VTI/AV VTI Ratio 0.9 LVOT Stroke Volume 73 ml LVOT CO 7.5 l/min LVOT CI 4.6 l/min/m2 Pulmonic Valve Name Value Normal RVOT Doppler RVOT Peak Gradient 3 mmHg PV Doppler PV Peak Gradient
[2023-04-15 04:34] VITALS: BP 135/67; PULSE 85; RESP 16; TEMP 36.7; O2SAT 95
[2023-04-15 05:55] LABS: Hematocrit 36.4 % (37.0-47.0); Hemoglobin 11.7 g/dL (12.0-15.0); Mean Corpuscular HGB Conc 32.1 g/dl (32-36); Mean Corpuscular Hemoglobin 32.3 pg (26-34); Mean Corpuscular Volume 100.6 fl (80-100); Mean Platelet Volume 8.6 fl (7.4-10.4); Platelet Count Result 251 k/mm3 (150-375); Red Blood Count 3.62 M/mm3 (4.2-5.4); Red Cell Distribution Width 13.7 % (11.5-14.5); White Blood Count 9.3 K/mm3 (4.5-10.0)
[2023-04-15 06:12] LABS: Alanine Aminotransferase 31 U/L (6-35); Albumin Level 3.4 g/dL (3.5-5.1); Alkaline Phosphatase 53 U/L (38-126); Anion Gap 2 mmol/L (8-16); Aspartate Amino Transferase 34 U/L (14-36); Bilirubin,Total 0.6 mg/dL (0.2-1.3); Blood Urea Nitrogen 16 mg/dL (7-17); Carbon Dioxide 34 mmol/L (22-30); Chloride 103 mmol/L (98-107); Estimated CRCL calculation 50 ml/min; Estimated Glomerular Filt Rate > 60; Glucose 103 mg/dL (65-110); Potassium 3.8 mmol/L (3.4-5.0); Sodium 139 mmol/L (137-145)
[2023-04-15 08:00] VITALS: O2SAT 94
[2023-04-15] MEDS: GABAPENTIN 300 MG CAPSULE 600 MG PO ×3 (09:14→17:42)
[2023-04-15] MEDS: ENOXAPARIN 40 MG/0.4 ML SYRINGE SUB-Q (09:14)
[2023-04-15] MEDS: FERROUS SULFATE 325 MG TABLET DR BY MOUTH ×2 (09:15→17:42)
[2023-04-15] MEDS: THERAPEUTIC MULTIVITAMINS/MINERALS TAB (*BKC) 1 TABLET PO (09:15)
[2023-04-15] MEDS: predniSONE 20 MG TABLET PO (09:15)
[2023-04-15] MEDS: PANTOPRAZOLE 40 MG TABLET PO (09:15)
[2023-04-15] MEDS: PARoxetine 20 MG TABLET BY MOUTH (09:15)
[2023-04-15] MEDS: OMEGA 3 POLYUNSAT FATTY ACIDS 1 GM CAP PO (09:15)
[2023-04-15] MEDS: BACLOFEN 10 MG TABLET PO ×3 (09:15→17:43)
[2023-04-15] MEDS: ACETAMINOPHEN/CODEINE (*CRX) 300/30 MG TABLET 1 TAB PO ×2 (09:15→18:12)
[2023-04-15] MEDS: DOCUSATE SODIUM 100 MG CAPSULE PO ×2 (09:15→20:32)
[2023-04-15 10:32] VITALS: O2SAT 90
[2023-04-15 11:39] LABS: Glucose Point of Care 194 mg/dl (65-105)
[2023-04-15 11:45] VITALS: O2SAT 92
--- NOTE | 2023-04-15 11:57 | PCOTNOTE ---
Attempted to see Patient for OT treatment session at this time. Patient's daughter present and both declined having services at this time due to Patient not feeling well. Patient verbalized she feels dizzy and like shes falling over while lying in the bed. Therapist plans to check back at a later time.
[2023-04-15] MEDS: MECLIZINE HCL 25 MG TABLET PO (12:09)
[2023-04-15] MEDS: DICLOFENAC SOD 75 MG TABLET.EC BY MOUTH (12:09)
--- NOTE | 2023-04-15 13:31 | PC.NURSE ---
On 04/15/23, the student, [Mayda Alexander], provided care and completed [facility] documentation on this patient. I have reviewed the student's documentation and agree with the findings.
--- NOTE | 2023-04-15 13:35 | PM.IMPN ---
Progress Note: A&P Assessment and Plan (1) Hypoxia: Code(s): R09.02 - Hypoxemia Status: Acute Assessment and Plan: SpO2 reportedly dropped into the 80s on room air and she is currently on 3 L nasal cannula with SpO2 in the mid 90s. CTA of the chest was negative for pulmonary embolism and there was no evidence of pneumonitis, pneumonia, or pulmonary edema. Echocardiogram with EF of greater than 70% and grade 1 diastolic dysfunction with no valvular disease No sign of infection on labs or imaging. Patient able to be weaned down to 1 L today. (2) Generalized weakness: Code(s): R53.1 - Weakness Status: Acute Assessment and Plan: She had a fall last week in which she landed on her left hip and she has some swelling in that left groin which may be playing a factor here. Venous Doppler ultrasound negative for DVT PT and OT ordered No sign of infection on labs or imaging Patient having workup for Parkinson's disease neurology appointment next Friday Patient will likely need placement (3) Metastatic melanoma: Onset Date: 12/2021 Code(s): C43.9 - Malignant melanoma of skin, unspecified Status: Acute Assessment and Plan: Finished chemotherapy treatments in February. (4) Swelling of lower extremity: Code(s): M79.89 - Other specified soft tissue disorders Status: Acute Assessment and Plan: Lower extremity Dopplers negative for DVT. Echocardiogram with EF of greater than 70% grade 1 diastolic dysfunction. (5) Chronic pain syndrome: Code(s): G89.4 - Chronic pain syndrome Status: Acute Assessment and Plan: Continue home medication. (6) Acute metabolic encephalopathy: Code(s): G93.41 - Metabolic encephalopathy Status: Acute Assessment and Plan: 04/15/23 Patient developed acute confusion while in her room. She had sitting up when she mentally she got very dizzy. Short while later patient started thinking she was at her own home and hallucinating stair wells . UA and came back suspicious for UTI. CT head ordered. (7) Urinary tract infection: Code(s): N39.0 - Urinary tract infection, site not specified Status: Acute Assessment and Plan: 04/15/23 UA with 1+ protein, 3+ blood, 3+ leukocyte esterase, 6-10 rbc's and greater than 100 wbc's. Patient started on Rocephin. Urine culture pending. Tailor antibiotic therapy to culture results blood cultures ordered Subjective Date/time seen: 04/15/23 13:35 Interval history: Patient was evaluated earlier and was doing very well. Patient continues to work with therapy. Later in the afternoon patient developed acute confusion, dizziness and was hallucinating. Patient thought that she was in her home. Patient did not have any medications added to her medication list nor has she missed any medications. UA and head CT were ordered due to the acute mental change. Will continue to monitor. Exam Narrative: GENERAL: Comfortable, no acute distress HENMT: moist mucous membranes EYES: EOM intact b/l NECK: no lymphadenopathy RESPIRATORY: Mild bibasilar crackles CARDIO: RRR GI: soft, nontender, bowel sounds present SKIN: no rashes EXTREMITIES: no edema, redness or tenderness Objective Data Vital Signs Vital Signs: Vital Signs - 24 hr 04/14/23 14:00 04/14/23 19:27 04/14/23 20:00 Temperature 97.8 F Pulse Rate 98 Respiratory Rate 14 Blood Pressure 148/67 H Pulse Oximetry 97 94 94 Oxygen Delivery Nasal Cannula Nasal Cannula Oxygen Flow Rate 1 1 04/14/23 22:00 04/15/23 04:34 04/15/23 10:32 Temperature 97.5 F L 98.0 F Pulse Rate 91 85 Respiratory Rate 18 16 Blood Pressure 121/63 135/67 Pulse Oximetry 95 95 90 Oxygen Delivery Nasal Cannula Oxygen Flow Rate 1 04/15/23 08:00 04/15/23 11:45 Temperature Pulse Rate Respiratory Rate Blood Pres
[2023-04-15 14:00] VITALS: BP 148/69; PULSE 112; RESP 20; TEMP 37.2; O2SAT 96
[2023-04-15 14:37] LABS: Alveolar/Arterial O2 Gradient 36.9 mmHg; Device NASAL CANNULA; Fractional Inspired Oxygen 24 %; HCO3 ABG 31.1 mEq/l (22.0-26.0); Modified Allen's Test Pass; Oxygen Content ABG 17.5 %vol (16.0-22.0); Oxygen Saturation ABG 95.9 % (95.0-100.0); Oxyhemoglobin 94.6 % THb (90.0-100.0); PO2 ABG 78.3 mmHg (80.0-100.0); PO2 FiO2 Ratio Arterial Blood 3.26 %; Site Drawn RIGHT RADIAL; Total Hemoglobin 13.1 g/dL (12.0-18.0); pH ABG 7.439 (7.350-7.450)
--- NOTE | 2023-04-15 14:49 | PCOTNOTE ---
Attempted to see Patient for P.M. treatment session. Patient having increased confusion, trying to climb out of bed, unable to follow directions. Per RN, Patient has become more confused and gets irritated easily.
[2023-04-15 14:51] LABS: Appearance Urine Turbid (Clear); Bacteria Urine 4+ /hpf; Bilirubin Urine Negative (Negative); Blood Urine 3+ (Negative); Color Urine Yellow (Yellow); Glucose Urine UA Negative (Negative); Ketones Urine Negative (Negative); Leukocyte Esterase Ur 3+ LEU/UL (Negative); Nitrate Urine Negative (Negative); Protein Urine 1+ mg/dL (Negative); Specific Grav Ur 1.011 (1.001-1.035); Squamous Epithelial Cell Urine None seen /hpf (Few); Urobilinogen Urine 0.2 mg/dL (<2.0); WBC Urine >100 /hpf; pH Urine 8.5 (5.0-9.0)
[2023-04-15 14:57] LABS: Add Urine Microscopic? YES
[2023-04-15] MEDS: SIMVASTATIN 20 MG TABLET BY MOUTH (17:42)
[2023-04-15] MEDS: traZODone HCL 50 MG TABLET 100 MG PO (20:32)
[2023-04-15 21:16] VITALS: BP 148/87; PULSE 106; RESP 14; TEMP 36.6; O2SAT 95
[2023-04-15] MEDS: CENTRAL LINE FLUSH 10 ML IV PUSH (21:21)
[2023-04-16 05:31] LABS: Hematocrit 35.3 % (37.0-47.0); Hemoglobin 11.3 g/dL (12.0-15.0); Mean Platelet Volume 8.4 fl (7.4-10.4); Platelet Count Result 250 k/mm3 (150-375); Red Blood Count 3.53 M/mm3 (4.2-5.4); Red Cell Distribution Width 13.9 % (11.5-14.5); White Blood Count 8.7 K/mm3 (4.5-10.0)
[2023-04-16 05:49] LABS: Alanine Aminotransferase 28 U/L (6-35); Albumin Level 3.3 g/dL (3.5-5.1); Alkaline Phosphatase 43 U/L (38-126); Anion Gap 2 mmol/L (8-16); Aspartate Amino Transferase 32 U/L (14-36); Bilirubin,Total 0.5 mg/dL (0.2-1.3); Blood Urea Nitrogen 19 mg/dL (7-17); Carbon Dioxide 35 mmol/L (22-30); Chloride 99 mmol/L (98-107); Estimated CRCL calculation 43 ml/min; Estimated Glomerular Filt Rate > 60; Glucose 86 mg/dL (65-110); Potassium 3.9 mmol/L (3.4-5.0); Sodium 136 mmol/L (137-145)
[2023-04-16 06:00] VITALS: BP 126/67; PULSE 90; RESP 14; TEMP 37; O2SAT 94
[2023-04-16 08:00] VITALS: PULSE 90; RESP 14; O2SAT 94
--- NOTE | 2023-04-16 08:24 | P.PNIM_ITS ---
Progress Note: A&P Assessment and Plan (1) Hypoxia: Code(s): R09.02 - Hypoxemia Status: Acute Assessment and Plan: 04/15/23: * SpO2 reportedly dropped into the 80s on room air and she is currently on 3 L nasal cannula with SpO2 in the mid 90s. * CTA of the chest was negative for pulmonary embolism and there was no evidence of pneumonitis, pneumonia, or pulmonary edema. * Echocardiogram with EF of greater than 70% and grade 1 diastolic dysfunction with no valvular disease * No sign of infection on labs or imaging. * Patient able to be weaned down to 1 L today. 04/16/23: * remains on 2 L nasal cannula * incentive spirometer ordered * increase activity, PT and OT ordered (2) Generalized weakness: Code(s): R53.1 - Weakness Status: Acute Assessment and Plan: 04/15/23: * She had a fall last week in which she landed on her left hip and she has some swelling in that left groin which may be playing a factor here. * Venous Doppler ultrasound negative for DVT * PT and OT ordered * No sign of infection on labs or imaging * Patient having workup for Parkinson's disease neurology appointment next Friday * Patient will likely need placement 04/16/23: * PT and OT following patient * patient following up on an outpatient basis with Neurology for workup for Parkinson's disease * Tremors noted in hands, patient shuffles feet when walking * patient will possibly need placement upon discharge (3) Metastatic melanoma: Onset Date: 12/2021 Code(s): C43.9 - Malignant melanoma of skin, unspecified Status: Acute Assessment and Plan: Finished chemotherapy treatments in February. (4) Swelling of lower extremity: Code(s): M79.89 - Other specified soft tissue disorders Status: Acute Assessment and Plan: 04/15/2023: * Lower extremity Dopplers negative for DVT. * Echocardiogram with EF of greater than 70% grade 1 diastolic dysfunction. 04/16/2023: * no change to current treatment plan (5) Chronic pain syndrome: Code(s): G89.4 - Chronic pain syndrome Status: Acute Assessment and Plan: 04/15/23: * Continue home medication. 04/16/23: * no change to current treatment plan (6) Acute metabolic encephalopathy: Code(s): G93.41 - Metabolic encephalopathy Status: Acute Assessment and Plan: 04/15/23 * Patient developed acute confusion while in her room. She had sitting up when she mentally she got very dizzy. Short while later patient started thinking she was at her own home and hallucinating stair wells . * UA and came back suspicious for UTI. * CT head ordered. 04/16/23: * patient alert to voice but drifts off to sleep shortly after, minimal interaction during exam. * Patient being treated for UTI, awaiting urine culture results * CT of the head negative for any acute intracranial changes (7) Urinary tract infection: Code(s): N39.0 - Urinary tract infection, site not specified Status: Acute Assessment and Plan: 04/15/23 UA with 1+ protein, 3+ blood, 3+ leukocyte esterase, 6-10 rbc's and greater than 100 wbc's. * Patient started on Rocephin. * Urine culture pending. * Tailor antibiotic therapy to culture results * blood cultures ordered 04/16/23: * blood and urine cultures pending * continue Rocephin Time Spent With Patient Time with patient: Cele
--- NOTE | 2023-04-16 08:24 | PM.IMPN ---
Progress Note: A&P Assessment and Plan (1) Hypoxia: Code(s): R09.02 - Hypoxemia Status: Acute Assessment and Plan: 04/15/23: SpO2 reportedly dropped into the 80s on room air and she is currently on 3 L nasal cannula with SpO2 in the mid 90s. CTA of the chest was negative for pulmonary embolism and there was no evidence of pneumonitis, pneumonia, or pulmonary edema. Echocardiogram with EF of greater than 70% and grade 1 diastolic dysfunction with no valvular disease No sign of infection on labs or imaging. Patient able to be weaned down to 1 L today. 04/16/23: remains on 2 L nasal cannula incentive spirometer ordered increase activity, PT and OT ordered (2) Generalized weakness: Code(s): R53.1 - Weakness Status: Acute Assessment and Plan: 04/15/23: She had a fall last week in which she landed on her left hip and she has some swelling in that left groin which may be playing a factor here. Venous Doppler ultrasound negative for DVT PT and OT ordered No sign of infection on labs or imaging Patient having workup for Parkinson's disease neurology appointment next Friday Patient will likely need placement 04/16/23: PT and OT following patient patient following up on an outpatient basis with Neurology for workup for Parkinson's disease Tremors noted in hands, patient shuffles feet when walking patient will possibly need placement upon discharge (3) Metastatic melanoma: Onset Date: 12/2021 Code(s): C43.9 - Malignant melanoma of skin, unspecified Status: Acute Assessment and Plan: Finished chemotherapy treatments in February. (4) Swelling of lower extremity: Code(s): M79.89 - Other specified soft tissue disorders Status: Acute Assessment and Plan: 04/15/2023: Lower extremity Dopplers negative for DVT. Echocardiogram with EF of greater than 70% grade 1 diastolic dysfunction. 04/16/2023: no change to current treatment plan (5) Chronic pain syndrome: Code(s): G89.4 - Chronic pain syndrome Status: Acute Assessment and Plan: 04/15/23: Continue home medication. 04/16/23: no change to current treatment plan (6) Acute metabolic encephalopathy: Code(s): G93.41 - Metabolic encephalopathy Status: Acute Assessment and Plan: 04/15/23 Patient developed acute confusion while in her room. She had sitting up when she mentally she got very dizzy. Short while later patient started thinking she was at her own home and hallucinating stair wells . UA and came back suspicious for UTI. CT head ordered. 04/16/23: patient alert to voice but drifts off to sleep shortly after, minimal interaction during exam. Patient being treated for UTI, awaiting urine culture results CT of the head negative for any acute intracranial changes (7) Urinary tract infection: Code(s): N39.0 - Urinary tract infection, site not specified Status: Acute Assessment and Plan: 04/15/23 UA with 1+ protein, 3+ blood, 3+ leukocyte esterase, 6-10 rbc's and greater than 100 wbc's. Patient started on Rocephin. Urine culture pending. Tailor antibiotic therapy to culture results blood cultures ordered 04/16/23: blood and urine cultures pending continue Rocephin Time Spent With Patient Time with patient: Greater than 35 minutes Subjective Date/time seen: 04/16/23 08:24 Interval history: 04/13/2023: This is an 83 year old female who presents to the ER with complaints of weakness, leg swelling, and low oxygen levels. Patient has a significant past medical history of malignant melanoma and is followed by Oncologist Dr. Goncalves. Patient was on Keytruda treatment when she developed a shuffled gate and tremors. She was taken of Keytruda in December. Son took patient to [facility] on 04/11/2023 for shortness of breath.....Son felt t
[2023-04-16] MEDS: predniSONE 20 MG TABLET PO (08:27)
[2023-04-16] MEDS: ENOXAPARIN 40 MG/0.4 ML SYRINGE SUB-Q (08:27)
[2023-04-16] MEDS: DOCUSATE SODIUM 100 MG CAPSULE PO ×2 (08:27→20:18)
[2023-04-16] MEDS: BACLOFEN 10 MG TABLET PO ×3 (08:27→17:01)
[2023-04-16] MEDS: OMEGA 3 POLYUNSAT FATTY ACIDS 1 GM CAP PO (08:27)
[2023-04-16] MEDS: GABAPENTIN 300 MG CAPSULE 600 MG PO ×3 (08:27→17:01)
[2023-04-16] MEDS: THERAPEUTIC MULTIVITAMINS/MINERALS TAB (*BKC) 1 TABLET PO (08:27)
[2023-04-16] MEDS: PANTOPRAZOLE 40 MG TABLET PO (08:27)
[2023-04-16] MEDS: FERROUS SULFATE 325 MG TABLET DR BY MOUTH ×2 (08:27→17:01)
[2023-04-16] MEDS: PARoxetine 20 MG TABLET BY MOUTH (08:27)
[2023-04-16] MEDS: ACETAMINOPHEN/CODEINE (*CRX) 300/30 MG TABLET 1 TAB PO (08:33)
--- NOTE | 2023-04-16 10:42 | PCOTNOTE ---
Per daughter in-law. Patient's sleeping at this time. She did not sleep last night and asking therapy to check back at a later time. Patient's daughter verbalized her sleep and antibiotic are the best things for her at this time to get her well.
[2023-04-16] MEDS: CENTRAL LINE FLUSH 10 ML IV PUSH ×2 (13:14→20:18)
[2023-04-16] MEDS: DICLOFENAC SOD 75 MG TABLET.EC BY MOUTH (13:14)
[2023-04-16 13:20] VITALS: BP 120/70; PULSE 95; RESP 16; TEMP 36.6; O2SAT 96
--- NOTE | 2023-04-16 15:05 | PCOTNOTE ---
Patient sleeping when entered the room. Patient was woke up and declined to participate at this time. Patient stated she is not feeling well and needed to sleep. Patient's daughter in-law currently speaking with the nurse.
[2023-04-16] MEDS: SIMVASTATIN 20 MG TABLET BY MOUTH (17:01)
[2023-04-16] MEDS: traZODone HCL 50 MG TABLET 100 MG PO (20:18)
[2023-04-16 20:28] VITALS: BP 135/70; PULSE 91; RESP 17; TEMP 37.1; O2SAT 96
[2023-04-17 04:37] LABS: Basophils Percent Auto 0.4 % (0.2-1.2); Eosinophils Absolute Auto 0.1 K/mm3 (0-0.3); Eosinophils Percent Auto 0.8 % (0-4.4); Hematocrit 33.5 % (37.0-47.0); Hemoglobin 10.8 g/dL (12.0-15.0); Immature Granulocyte Absolute 0.16 K/mm3 (0.00-0.031); Immature Granulocyte Percent A 1.9 % (0-0.5); Lymphocytes Absolute Auto 1.24 K/mm3 (0.9-3.2); Mean Corpuscular HGB Conc 32.2 g/dl (32-36); Mean Corpuscular Hemoglobin 31.9 pg (26-34); Mean Corpuscular Volume 98.8 fl (80-100); Mean Platelet Volume 8.4 fl (7.4-10.4); Monocytes Absolute Auto 0.6 K/mm3 (0.1-0.6); Monocytes Percent Auto 6.8 % (2.6-8.5); Neutrophils Absolute Auto 6.2 K/mm3 (1.3-6.7); Neutrophils Percent Auto 75.1 % (45.5-73.1); Platelet Count Result 282 k/mm3 (150-375); Red Blood Count 3.39 M/mm3 (4.2-5.4); Red Cell Distribution Width 13.8 % (11.5-14.5); White Blood Count 8.3 K/mm3 (4.5-10.0)
[2023-04-17 04:50] LABS: Anion Gap 1 mmol/L (8-16); Blood Urea Nitrogen 21 mg/dL (7-17); Calcium 9.2 mg/dL (8.4-10.2); Carbon Dioxide 35 mmol/L (22-30); Chloride 99 mmol/L (98-107); Estimated CRCL calculation 38 ml/min; Estimated Glomerular Filt Rate > 60; Glucose 118 mg/dL (65-110); Potassium 3.9 mmol/L (3.4-5.0); Sodium 135 mmol/L (137-145)
[2023-04-17] MEDS: CENTRAL LINE FLUSH 10 ML IV PUSH ×3 (05:17→21:30)
[2023-04-17 05:36] VITALS: BP 137/82; PULSE 87; RESP 17; TEMP 36.8; O2SAT 98
[2023-04-17] MEDS: PANTOPRAZOLE 40 MG TABLET PO (08:53)
[2023-04-17] MEDS: PARoxetine 20 MG TABLET BY MOUTH (08:53)
[2023-04-17] MEDS: FERROUS SULFATE 325 MG TABLET DR BY MOUTH ×2 (08:53→18:10)
[2023-04-17] MEDS: predniSONE 20 MG TABLET PO (08:53)
[2023-04-17] MEDS: DOCUSATE SODIUM 100 MG CAPSULE PO ×2 (08:53→20:33)
[2023-04-17] MEDS: GABAPENTIN 300 MG CAPSULE 600 MG PO ×3 (08:53→18:10)
[2023-04-17] MEDS: BACLOFEN 10 MG TABLET PO ×3 (08:53→18:10)
[2023-04-17] MEDS: THERAPEUTIC MULTIVITAMINS/MINERALS TAB (*BKC) 1 TABLET PO (08:53)
[2023-04-17] MEDS: ENOXAPARIN 40 MG/0.4 ML SYRINGE SUB-Q (08:54)
[2023-04-17] MEDS: ACETAMINOPHEN/CODEINE (*CRX) 300/30 MG TABLET 1 TAB PO ×2 (09:45→20:37)
[2023-04-17 09:55] VITALS: O2SAT 92
--- NOTE | 2023-04-17 10:42 | P.PNIM_ITS ---
Progress Note: A&P Assessment and Plan (1) Hypoxia: Code(s): R09.02 - Hypoxemia Status: Acute Assessment and Plan: 04/15/23: * SpO2 reportedly dropped into the 80s on room air and she is currently on 3 L nasal cannula with SpO2 in the mid 90s. * CTA of the chest was negative for pulmonary embolism and there was no evidence of pneumonitis, pneumonia, or pulmonary edema. * Echocardiogram with EF of greater than 70% and grade 1 diastolic dysfunction with no valvular disease * No sign of infection on labs or imaging. * Patient able to be weaned down to 1 L today. 04/16/23: * remains on 2 L nasal cannula * incentive spirometer ordered * increase activity, PT and OT ordered 04/17/23: * Patient remains on 2 L nasal cannula, SpO2 ranging between 92-98%, continue to wean O2 as tolerated * Continue with incentive spirometer * Continue with PT and OT (2) Generalized weakness: Code(s): R53.1 - Weakness Status: Acute Assessment and Plan: 04/15/23: * She had a fall last week in which she landed on her left hip and she has some swelling in that left groin which may be playing a factor here. * Venous Doppler ultrasound negative for DVT * PT and OT ordered * No sign of infection on labs or imaging * Patient having workup for Parkinson's disease neurology appointment next Friday * Patient will likely need placement 04/16/23: * PT and OT following patient * patient following up on an outpatient basis with Neurology for workup for Par kinson's disease * Tremors noted in hands, patient shuffles feet when walking * patient will possibly need placement upon discharge 04/17/23: * PT and OT following patient * [facility] (3) Metastatic melanoma: Onset Date: 12/2021 Code(s): C43.9 - Malignant melanoma of skin, unspecified Status: Acute Assessment and Plan: Finished chemotherapy treatments in February. (4) Swelling of lower extremity: Code(s): M79.89 - Other specified soft tissue disorders Status: Acute Assessment and Plan: 04/15/2023: * Lower extremity Dopplers negative for DVT. * Echocardiogram with EF of greater than 70% grade 1 diastolic dysfunction. 04/16/2023: * no change to current treatment plan (5) Chronic pain syndrome: Code(s): G89.4 - Chronic pain syndrome Status: Acute Assessment and Plan: 04/15/23: * Continue home medication. 04/16/23: * no change to current treatment plan (6) Acute metabolic encephalopathy: Code(s): G93.41 - Metabolic encephalopathy Status: Acute Assessment and Plan: 04/15/23 * Patient developed acute confusion while in her room. She had sitting up when she mentally she got very dizzy. Short while later patient started thinking she was at her own home and hallucinating stair wells . * UA and came back suspicious for UTI. * CT head ordered. 04/16/23: * patient alert to voice but drifts off to sleep shortly after, minimal interaction during exam. * Patient being treated for UTI, awaiting urine culture results * CT of the head negative for any acute intracranial changes 04/17/23: * Alert and oriented x 2-3 which is improved, patient able to tell me the year, president, date of , and what she is here for. However she was not able to tell me exactly where she was. * Patient being treated for UTI, umer
--- NOTE | 2023-04-17 10:42 | PM.IMPN ---
Progress Note: A&P Assessment and Plan (1) Hypoxia: Code(s): R09.02 - Hypoxemia Status: Acute Assessment and Plan: 04/15/23: SpO2 reportedly dropped into the 80s on room air and she is currently on 3 L nasal cannula with SpO2 in the mid 90s. CTA of the chest was negative for pulmonary embolism and there was no evidence of pneumonitis, pneumonia, or pulmonary edema. Echocardiogram with EF of greater than 70% and grade 1 diastolic dysfunction with no valvular disease No sign of infection on labs or imaging. Patient able to be weaned down to 1 L today. 04/16/23: remains on 2 L nasal cannula incentive spirometer ordered increase activity, PT and OT ordered 04/17/23: Patient remains on 2 L nasal cannula, SpO2 ranging between 92-98%, continue to wean O2 as tolerated Continue with incentive spirometer Continue with PT and OT (2) Generalized weakness: Code(s): R53.1 - Weakness Status: Acute Assessment and Plan: 04/15/23: She had a fall last week in which she landed on her left hip and she has some swelling in that left groin which may be playing a factor here. Venous Doppler ultrasound negative for DVT PT and OT ordered No sign of infection on labs or imaging Patient having workup for Parkinson's disease neurology appointment next Friday Patient will likely need placement 04/16/23: PT and OT following patient patient following up on an outpatient basis with Neurology for workup for Parkinson's disease Tremors noted in hands, patient shuffles feet when walking patient will possibly need placement upon discharge 04/17/23: PT and OT following patient Case management looking into assisted facility for rehab (3) Metastatic melanoma: Onset Date: 12/2021 Code(s): C43.9 - Malignant melanoma of skin, unspecified Status: Acute Assessment and Plan: Finished chemotherapy treatments in February. (4) Swelling of lower extremity: Code(s): M79.89 - Other specified soft tissue disorders Status: Acute Assessment and Plan: 04/15/2023: Lower extremity Dopplers negative for DVT. Echocardiogram with EF of greater than 70% grade 1 diastolic dysfunction. 04/16/2023: no change to current treatment plan (5) Chronic pain syndrome: Code(s): G89.4 - Chronic pain syndrome Status: Acute Assessment and Plan: 04/15/23: Continue home medication. 04/16/23: no change to current treatment plan (6) Acute metabolic encephalopathy: Code(s): G93.41 - Metabolic encephalopathy Status: Acute Assessment and Plan: 04/15/23 Patient developed acute confusion while in her room. She had sitting up when she mentally she got very dizzy. Short while later patient started thinking she was at her own home and hallucinating stair wells . UA and came back suspicious for UTI. CT head ordered. 04/16/23: patient alert to voice but drifts off to sleep shortly after, minimal interaction during exam. Patient being treated for UTI, awaiting urine culture results CT of the head negative for any acute intracranial changes 04/17/23: Alert and oriented x 2-3 which is improved, patient able to tell me the year, president, date of , and what she is here for. However she was not able to tell me exactly where she was. Patient being treated for UTI, currently on Rocephin IV, urine culture showing Gram-negative bacilli however sensitivities are not back. We will await the sensitivities to transition to oral antibiotic. (7) Urinary tract infection: Code(s): N39.0 - Urinary tract infection, site not specified Status: Acute Assessment and Plan: 04/15/23 UA with 1+ protein, 3+ blood, 3+ leukocyte esterase, 6-10 rbc's and greater than 100 wbc's. Patient started on Rocephin. Urine culture pending. Tailor antibiotic therapy to culture res
[2023-04-17] MEDS: DICLOFENAC SOD 75 MG TABLET.EC BY MOUTH (12:11)
[2023-04-17 14:00] VITALS: BP 133/73; PULSE 84; RESP 12; TEMP 36.4; O2SAT 97
--- NOTE | 2023-04-17 14:13 | PC.NURSE ---
On 04/17/23, the student, [Criselda Flores], provided care and completed [facility] documentation on this patient. I have reviewed the student's documentation and agree with the findings.
--- NOTE | 2023-04-17 14:23 | PC.NURSE ---
On 04/17/23, the student, [Penny Woods], provided care and completed [facility] documentation on this patient. I have reviewed the student's documentation and agree with the findings.
[2023-04-17] MEDS: CEFDINIR 300 MG CAPSULE PO ×2 (18:10→20:34)
[2023-04-17] MEDS: SIMVASTATIN 20 MG TABLET BY MOUTH (18:10)
[2023-04-17 19:26] VITALS: BP 135/69; PULSE 91; RESP 18; TEMP 36.6; O2SAT 97
[2023-04-17] MEDS: traZODone HCL 50 MG TABLET 100 MG PO (20:33)
[2023-04-17 22:23] VITALS: O2SAT 97
[2023-04-18 05:26] LABS: Basophils Absolute Auto 0.1 K/mm3 (0.0-0.1); Basophils Percent Auto 0.7 % (0.2-1.2); Eosinophils Absolute Auto 0.1 K/mm3 (0-0.3); Eosinophils Percent Auto 0.8 % (0-4.4); Hematocrit 34.5 % (37.0-47.0); Hemoglobin 11.4 g/dL (12.0-15.0); Immature Granulocyte Percent A 4.4 % (0-0.5); Lymphocytes Absolute Auto 1.57 K/mm3 (0.9-3.2); Lymphocytes Percent Auto 17.4 % (18.3-44.2); Mean Corpuscular Volume 96.9 fl (80-100); Mean Platelet Volume 8.4 fl (7.4-10.4); Monocytes Absolute Auto 0.6 K/mm3 (0.1-0.6); Monocytes Percent Auto 6.9 % (2.6-8.5); Neutrophils Absolute Auto 6.3 K/mm3 (1.3-6.7); Neutrophils Percent Auto 69.8 % (45.5-73.1); Platelet Count Result 300 k/mm3 (150-375); Red Blood Count 3.56 M/mm3 (4.2-5.4); Red Cell Distribution Width 13.4 % (11.5-14.5)
[2023-04-18 05:38] LABS: Anion Gap 2 mmol/L (8-16); Blood Urea Nitrogen 15 mg/dL (7-17); Calcium 9.3 mg/dL (8.4-10.2); Carbon Dioxide 36 mmol/L (22-30); Chloride 97 mmol/L (98-107); Estimated CRCL calculation 59 ml/min; Estimated Glomerular Filt Rate > 60; Glucose 83 mg/dL (65-110); Potassium 3.9 mmol/L (3.4-5.0); Sodium 135 mmol/L (137-145)
[2023-04-18] MEDS: CENTRAL LINE FLUSH 10 ML IV PUSH (05:55)
[2023-04-18 06:00] VITALS: BP 146/73; PULSE 79; RESP 18; TEMP 36.7; O2SAT 97
[2023-04-18] MEDS: predniSONE 20 MG TABLET PO (07:57)
[2023-04-18] MEDS: FERROUS SULFATE 325 MG TABLET DR BY MOUTH (07:57)
[2023-04-18] MEDS: GABAPENTIN 300 MG CAPSULE 600 MG PO ×2 (07:57→12:20)
[2023-04-18] MEDS: THERAPEUTIC MULTIVITAMINS/MINERALS TAB (*BKC) 1 TABLET PO (07:57)
[2023-04-18] MEDS: DOCUSATE SODIUM 100 MG CAPSULE PO (07:57)
[2023-04-18] MEDS: CEFDINIR 300 MG CAPSULE PO (07:57)
[2023-04-18] MEDS: PANTOPRAZOLE 40 MG TABLET PO (07:57)
[2023-04-18] MEDS: OMEGA 3 POLYUNSAT FATTY ACIDS 1 GM CAP PO (07:57)
[2023-04-18] MEDS: PARoxetine 20 MG TABLET BY MOUTH (07:58)
[2023-04-18] MEDS: BACLOFEN 10 MG TABLET PO ×2 (07:58→12:20)
[2023-04-18] MEDS: ENOXAPARIN 40 MG/0.4 ML SYRINGE SUB-Q (08:01)
[2023-04-18] MEDS: ACETAMINOPHEN/CODEINE (*CRX) 300/30 MG TABLET 1 TAB PO (08:08)
[2023-04-18 08:10] VITALS: O2SAT 96
--- NOTE | 2023-04-18 08:53 | PM.DS ---
DS: Admitting Diagnosis Discharge Date 04/18/23 Admitting Diagnosis hypoxia generalized weakness metastatic melanoma swelling of lower extremity chronic pain DS: Discharge Diagnosis Discharge Diagnosis (1) Hypoxia: Code(s): R09.02 - Hypoxemia Status: Acute (2) Generalized weakness: Code(s): R53.1 - Weakness Status: Acute (3) Metastatic melanoma: Onset Date: 12/2021 Code(s): C43.9 - Malignant melanoma of skin, unspecified Status: Acute (4) Swelling of lower extremity: Code(s): M79.89 - Other specified soft tissue disorders Status: Acute (5) Chronic pain syndrome: Code(s): G89.4 - Chronic pain syndrome Status: Acute (6) Acute metabolic encephalopathy: Code(s): G93.41 - Metabolic encephalopathy Status: Acute (7) Urinary tract infection: Code(s): N39.0 - Urinary tract infection, site not specified Status: Acute DS: Summary Hospital Course Reason for hospitalization: weakness urinary tract infection Hospital Course: This is an 83 year old female who presented to the ER on 04/13/2023 with generalized weakness and increasing shortness of breath with difficulty lying down flat in bed. She did have some swelling in both legs on admission and venous dopplers were ordered and were negative for DVT. CTA of the chest did not reveal any interstitial lung disease, infection, or PE. However did show a large sliding hiatal hernia. His CT was also performed which was negative for any intracranial mass or lesion. chest x-ray done on 04/13/2023 showed mild atelectasis in left lower lung region a large hiatal hernia. Urinalysis performed on 04/15/2023 revealed 1+ protein, 3+ leukocytes, 4+ bacteria. Urine culture was sent and resulted with proteus mirabilis. Blood cultures x2 showing no growth day 3. patient was covered with Rocephin IV for couple of days and then switched over to cefdinir 300 mg po q.12 hours. PT and OT evaluated patient and recommended inpatient rehab. Case coordination was involved for rehab placement in which she was accepted today. Patient stable for discharge to rehab facility. Plan discussed with patient and daughter who is agreeable with plan of care. Status at Discharge Cognitive/behavioral status at discharge: alert and oriented x4 Functional status at discharge: uses cane/walker Overall status at discharge: patient is progressing back to baseline Time Spent with Patient Time attestation: Total time spent providing and/or coordinating discharge services: Time spent: Greater than 30 minutes Exam Narrative: General:?Chronically ill-appearing female lying in bed. Does not appear to be any acute distress. HEENT:???PERRL, EOMI. moist mucous membranes. Neck:??Supple., no JVD, trachea midline Respiratory:?Respirations are nonlabored and lungs are clear to auscultation, no adventitious lung sounds. Cardiovascular:??Regular rate and rhythm with S1-S2. no murmurs, gallops, friction rub. Gastrointestinal:??Abdomen is soft, nontender, and nondistended with Normoactive bowel sounds. Skin:??Warm and dry.? No rash or lesions noted Extremities:??No cyanosis or clubbing.Radial and pedal pulses intact. Neurological:??Alert and oriented x2-3. When awake you can see fine tremors of the hands. Generalized weakness. Psychiatric:??Pleasant and cooperative, interactive today ? DS: Data Data Completed and Pending Labs on day of discharge: Labs from last 24 hours 04/18/23 05:16 WBC 9.0 RBC 3.56 L Hgb 11.4 L Hct 34.5 L MCV 96.9 MCH 32.0 MCHC 33.0 RDW 13.4 Plt Count 300 MPV 8.4 Immature Gran % (Auto) 4.4 H Neut % (Auto) 69.8 Lymph % (Auto) 17.4 L Mcculloch % (Auto) 6.9 Eos % (Auto) 0.8 Baso % (Auto) 0.7 Lymph # (Auto) 1.57 Mcculloch # (Auto) 0.6 Eos # (Auto) 0.1 Baso # (Auto) 0.1 Abs Immat Gran (auto) 0.40 H Absolute Neuts (auto) 6.3 Absolute Nucleated RBC 0.0 Nucleated RBC % 0.0
[2023-04-18 11:28] VITALS: O2SAT 97
[2023-04-18] MEDS: DICLOFENAC SOD 75 MG TABLET.EC BY MOUTH (12:20)
[2023-04-18 13:23] VITALS: BP 136/57; PULSE 101; RESP 18; TEMP 37; O2SAT 95
== END 2023-04-18 14:50 | DRG 189 ==
LOC: ANHED 10:12 → ANH2MED 10:44
PROVIDERS: Internal Medicine Critical Care Medicine; Admitting Provider Hospitalist; Emergency Provider General Practice; PCP Emergency Medicine; Visit Provider Nurse Practitioner Acute Care
DX: J96.01 Acute respiratory failure with hypoxia (principal); G93.41 Metabolic encephalopathy; C79.9 Secondary malignant neoplasm of unspecified site; N39.0 Urinary tract infection, site not specified; D50.9 Iron deficiency anemia, unspecified; E55.9 Vitamin D deficiency, unspecified; E78.2 Mixed hyperlipidemia; K21.9 Gastro-esophageal reflux disease without esophagitis; K44.9 Diaphragmatic hernia without obstruction or gangrene; R25.1 Tremor, unspecified; M79.89 Other specified soft tissue disorders; M85.852 Other specified disorders of bone density and structure, left thigh; M85.851 Other specified disorders of bone density and structure, right thigh; G89.29 Other chronic pain; M54.6 Pain in thoracic spine; Z20.822 Contact with and (suspected) exposure to COVID-19; F32.A Depression, unspecified; Z96.82 Presence of neurostimulator; Z85.820 Personal history of malignant melanoma of skin
CPT/HCPCS: 36415; 36600; 70450; 71045; 71046; 71275; 80048; 80053; 81001; 82375; 82805; 82948; 83050; 83605; 83735; 83880; 84484; 85025; 85027; 85380; 85610; 85730; 87040; 87077; 87086; 87186; 87636; 92610; 93005; 93306; 93970; 96372; 97110; 97161; 97165; 97530; 97535; 99213; 99285; A9270; G0378; G0463; J0696; J1642; J1650; J7030; J7512; Q9967